=== PATIENT | female | born 1965 | race Caucasian/White ===

== ENCOUNTER 2016-09-18 09:01 | Observation (INO) | payer BC, MEDICARE ==
[2016-09-18 10:28] LABS: BUN/CREATININE RATIO 19 (0-10)
== END 2016-09-18 18:17 | disposition left against medical advice (07) ==
LOC: ER1 09:01 → ZEROF 13:45
PROVIDERS: Emergency Medicine; ADMIT Internal Medicine
DX: R56.9 Unspecified convulsions (principal); E78.5 Hyperlipidemia, unspecified; I25.10 Atherosclerotic heart disease of native coronary artery without angina pectoris; I11.0 Hypertensive heart disease with heart failure; I50.9 Heart failure, unspecified; E03.9 Hypothyroidism, unspecified; M54.9 Dorsalgia, unspecified; G89.29 Other chronic pain; Z95.1 Presence of aortocoronary bypass graft; Z90.49 Acquired absence of other specified parts of digestive tract; Z90.710 Acquired absence of both cervix and uterus; Z90.89 Acquired absence of other organs; Z88.0 Allergy status to penicillin; Z88.2 Allergy status to sulfonamides; Z88.1 Allergy status to other antibiotic agents; Z91.040 Latex allergy status; Z79.899 Other long term (current) drug therapy; Z79.891 Long term (current) use of opiate analgesic; Z87.891 Personal history of nicotine dependence
CPT/HCPCS: 51701; 70450; 71010; 72040; 72125; 80053; 81001; 82962; 83690; 84484; 85610; 85730; 93005; 96374; 99285; G0378; J1953; J2060

== ENCOUNTER → 2016-09-18 | Outpatient (CLI) | payer BC, MEDICARE ==
[~2016-09-18] MED LIST: ASPIRIN EC81 MG PO; BENTYL20 MG PO; CYMBALTA60 MG PO; ENTERAGAM POWDER5 GM PO; FENOFIBRATE160 MG PO; FLAGYL500 MG PO; IMDUR ER TAB 3030 MG PO; KEPPRA500 MG PO; LACTINEX PACKET1 PKT PO; LEVAQUIN750 MG PO; LEVOTHYROXINE112 MCG PO; LOMOTIL TABLET1 EA PO; LOVAZA1 GM PO; NASONEX SPRAY 117 GM; NORCO 7.5-3251 EACH PO; PROTONIX40 MG PO; RANEXA500 MG PO; REQUIP1 MG PO; SIMVASTATIN20 MG PO; SOMA350 MG PO; SYMBICORT 16010.2 GM INH; TOPROL XL25 MG PO; TYLENOL325 MG PO; VITAMIN D32000 UNI1 PO; XANAX0.5 MG PO; ZOFRAN4 MG PO
[2016-09-18 09:34] LABS: HEMOGLOBIN 12.9 gm/dl (12.3-15.3); RED BLOOD COUNT 3.73 M/UL (4.00-5.10); WHITE BLOOD COUNT 8.2 K/UL (4.5-11.0)
[2016-09-18 09:39] LABS: BUN/CREATININE RATIO 19 (0-10)
== END ==
LOC: LAB 08:30
PROVIDERS: Nurse Practitioner
DX: M79.1 Myalgia (principal)
CPT/HCPCS: 36415; 80053; 80061; 84436; 84443; 84480; 85025

== ENCOUNTER 2016-11-14 07:02 | Emergency (ER) | payer BC, MEDICARE ==
[2016-11-14 07:49] LABS: HEMOGLOBIN 12.9 gm/dl (12.3-15.3); RED BLOOD COUNT 3.76 M/UL (4.00-5.10); WHITE BLOOD COUNT 8.2 K/UL (4.5-11.0)
[2016-11-14 08:28] LABS: BUN/CREATININE RATIO 19 (0-10)
== END 2016-11-14 12:26 | disposition home or self-care (01) ==
LOC: ER1 07:02
PROVIDERS: Physician Assistant
DX: R07.89 Other chest pain (principal); I25.10 Atherosclerotic heart disease of native coronary artery without angina pectoris; E78.5 Hyperlipidemia, unspecified; Z87.891 Personal history of nicotine dependence; Z88.0 Allergy status to penicillin; Z95.5 Presence of coronary angioplasty implant and graft; Z95.1 Presence of aortocoronary bypass graft
CPT/HCPCS: 36415; 71010; 80053; 82550; 82553; 83874; 84484; 85025; 85379; 93005; 96374; 96375; 99285; J2270; J2405

== ENCOUNTER → 2021-03-03 | Outpatient (CLI) | payer MEDICARE, OTHER ==
[~2021-03-03] MED LIST changes: +ANUSOL-HC25 MG PR; +NEURONTIN 300300 MG PO; +SINGULAIR10 MG PO; +TOPAMAX25 MG PO; +WELCHOL625 MG PO
== END ==
LOC: SLEEP 14:44
DX: G47.33 Obstructive sleep apnea (adult) (pediatric) (principal)
CPT/HCPCS: 95810

== ENCOUNTER 2021-03-24 17:23 | Emergency (ER) | payer MEDICARE, OTHER ==
[2021-03-24 19:01] LABS: RED BLOOD COUNT 3.51 M/UL (4.00-5.10); WHITE BLOOD COUNT 5.9 K/UL (4.5-11.0)
[2021-03-24 19:28] LABS: BUN/CREATININE RATIO 11 (0-10)
[2021-03-24 19:49] LABS: ADENOVIRUS F 40/41 Not Detected (Negative); ASTROVIRUS Not Detected (Negative); CAMPYLOBACTER Not Detected (Negative); CLOSTRIDIUM DIFFICILE TOX A/B Not Detected (Negative); CRYPTOSPORIDIUM Not Detected (Negative); E.COLI 0157 Not Detected (Negative); ENTAMOEBA HISTOLYTICA Not Detected (Negative); ENTEROAGGREGATIVE E.COLI (EAEC Not Detected (Negative); ENTEROPATHOGENIC E.COLI (EPEC) Not Detected (Negative); ENTEROTOXIGENIC E.COLI (ETEC) Not Detected (Negative); GIARDIA LAMBLIA Not Detected (Negative); NOROVIRUS GI/GII Not Detected (Negative); PLESIOMONAS SHIGELLOIDES Not Detected (Negative); ROTOVIRUS A Not Detected (Negative); SALMONELLA Not Detected (Negative); SAPOVIRUS Not Detected (Negative); SHIG/ENTEROINVAS.ECOLI (EIEC) Not Detected (Negative); SHIGA-LIK TOX.PRO.E.COLI (STEC Not Detected (Negative); VIBRIO Not Detected (Negative); VIBRIO CHOLERAE Not Detected (Negative); YERSINIA ENTEROCOLITICA Not Detected (Negative)
== END 2021-03-24 20:45 | disposition home or self-care (01) ==
LOC: ER1 17:23
PROVIDERS: Physician Assistant
DX: R10.9 Unspecified abdominal pain (principal); R11.2 Nausea with vomiting, unspecified; R19.7 Diarrhea, unspecified; Z20.822 Contact with and (suspected) exposure to COVID-19; E78.5 Hyperlipidemia, unspecified; I10 Essential (primary) hypertension; Z90.89 Acquired absence of other organs; Z95.1 Presence of aortocoronary bypass graft; Z97.10 Presence of artificial limb (complete) (partial), unspecified; Z91.040 Latex allergy status; Z88.0 Allergy status to penicillin; Z88.1 Allergy status to other antibiotic agents; Z88.6 Allergy status to analgesic agent
CPT/HCPCS: 71045; 80053; 81001; 82550; 82553; 83605; 83690; 83874; 84484; 85025; 87086; 87507; 93005; 96374; 96375; 99284; J2270; J2405; Q9967; U0002

== ENCOUNTER → 2021-04-06 | Day surgery (SDC) | payer MEDICARE, OTHER ==
[~2021-04-06] MED LIST changes: +ATORVASTATIN CA40 MG PO; +CLOPIDOGREL75 MG PO; +ISOSORBIDE DINI30 MG PO; +ISOSORBIDE MON120 MG PO; +LEVOTHYROXINE50 MCG PO; +METOPROLOL SUC100 MG PO; +NORTRIPTYLINE H25 MG PO; +PREGABALIN200 MG PO; +PROTONIX 40 MG40 M1 PO; +TIZANIDINE HCL4 MG PO; +ZYLOPRIM 100 M100 MG PO
== END | disposition home or self-care (01) ==
LOC: OR 07:01
DX: K29.50 Unspecified chronic gastritis without bleeding (principal); B96.81 Helicobacter pylori [H. pylori] as the cause of diseases classified elsewhere; D12.8 Benign neoplasm of rectum; K64.1 Second degree hemorrhoids; K57.30 Diverticulosis of large intestine without perforation or abscess without bleeding; K52.9 Noninfective gastroenteritis and colitis, unspecified; R13.13 Dysphagia, pharyngeal phase; G89.29 Other chronic pain; M54.50 Low back pain, unspecified; Z95.1 Presence of aortocoronary bypass graft; Z95.818 Presence of other cardiac implants and grafts; Z88.0 Allergy status to penicillin; Z88.1 Allergy status to other antibiotic agents; Z88.2 Allergy status to sulfonamides; Z88.8 Allergy status to other drugs, medicaments and biological substances; Z79.01 Long term (current) use of anticoagulants; Z79.899 Other long term (current) drug therapy
CPT/HCPCS: J2250; J2704; J3010; J7040

== ENCOUNTER → 2021-05-23 | Outpatient (CLI) | payer MEDICARE, OTHER | LOC: MRI 13:16 | DX: M51.36 Other intervertebral disc degeneration, lumbar region (principal); F17.200 Nicotine dependence, unspecified, uncomplicated; M48.07 Spinal stenosis, lumbosacral region | CPT/HCPCS: 72148 ==

== ENCOUNTER 2021-06-20 09:09 | Inpatient (IN) | payer MEDICARE, OTHER ==
[~2021-06-20] VITALS: Ht 165.1 cm; Wt 70.8 kg
[~2021-06-20 09:09] MED LIST changes: -METOPROLOL SUC100 MG PO; -NORTRIPTYLINE H25 MG PO; +PAMELOR50 MG PO; +TOPROL XL50 MG PO
[2021-06-20 11:46] LABS: RED BLOOD COUNT 3.61 M/UL (4.00-5.10); WHITE BLOOD COUNT 5.4 K/UL (4.5-11.0)
[2021-06-20] MEDS ORDERED: ASPIRIN EC81 MG PO (14:03)
[2021-06-20] MEDS ORDERED: TOPIRAMATE50 MG PO (14:03)
[2021-06-20] MEDS ORDERED: HYDROCODON-ACE1 EAC4 PO (14:04)
[2021-06-20] MEDS ORDERED: RANOLAZINE ER1000 MG PO (14:06)
[2021-06-21 03:29] LABS: HEMOGLOBIN 12.7 gm/dl (12.3-15.3); RED BLOOD COUNT 3.79 M/UL (4.00-5.10); WHITE BLOOD COUNT 5.3 K/UL (4.5-11.0)
[2021-06-22 03:10] LABS: HEMOGLOBIN 10.4 gm/dl (12.3-15.3); RED BLOOD COUNT 3.15 M/UL (4.00-5.10); WHITE BLOOD COUNT 3.1 K/UL (4.5-11.0)
[2021-06-23 16:15] LABS: ORGANISM ID Not indicated. (.); SPECIMEN SOURCE Urine (.); STREPTOCOCCUS PNEUMONIAE AG Negative (Negative)
[2021-06-24 02:56] LABS: HEMOGLOBIN 12.3 gm/dl (12.3-15.3)
[2021-06-24 03:00] LABS: RED BLOOD COUNT 3.69 M/UL (4.00-5.10)
[2021-06-25 05:27] LABS: HEMOGLOBIN 11.1 gm/dl (12.3-15.3)
[2021-06-25 05:31] LABS: RED BLOOD COUNT 3.22 M/UL (4.00-5.10); WHITE BLOOD COUNT 4.4 K/UL (4.5-11.0)
[2021-06-26 06:00] LABS: HEMOGLOBIN 11.4 gm/dl (12.3-15.3); RED BLOOD COUNT 3.36 M/UL (4.00-5.10)
[2021-06-26 06:01] LABS: WHITE BLOOD COUNT 12.1 K/UL (4.5-11.0)
[2021-06-26 07:02] LABS: BUN/CREATININE RATIO 55 (0-10)
[2021-06-27 05:22] LABS: HEMOGLOBIN 10.8 gm/dl (12.3-15.3); RED BLOOD COUNT 3.11 M/UL (4.00-5.10); WHITE BLOOD COUNT 13.5 K/UL (4.5-11.0)
[2021-06-27 05:49] LABS: BUN/CREATININE RATIO 57 (0-10)
[2021-06-28 05:46] LABS: HEMOGLOBIN 10.5 gm/dl (12.3-15.3); RED BLOOD COUNT 3.13 M/UL (4.00-5.10)
[2021-06-28 05:55] LABS: WHITE BLOOD COUNT 8.2 K/UL (4.5-11.0)
[2021-06-28 06:00] LABS: BUN/CREATININE RATIO 59 (0-10)
[2021-06-29 05:32] LABS: BUN/CREATININE RATIO 50 (0-10)
[2021-06-30 06:13] LABS: RED BLOOD COUNT 4.04 M/UL (4.00-5.10)
[2021-06-30 06:14] LABS: HEMOGLOBIN 13.8 gm/dl (12.3-15.3)
[2021-06-30 06:49] LABS: BUN/CREATININE RATIO 50 (0-10)
[2021-07-01 06:53] LABS: BUN/CREATININE RATIO 49 (0-10)
--- NOTE | 2021-07-01 18:03 | NUR ---
PT EXTUBATED PER MD ORDER TO 50% AIRVO. VSS. PT TOLERATED WELL. WILL CONTINUE TO MONITOR.
[2021-07-02 06:52] LABS: BUN/CREATININE RATIO 43 (0-10)
[2021-07-02 08:57] LABS: HEMOGLOBIN 12.5 gm/dl (12.3-15.3); RED BLOOD COUNT 3.74 M/UL (4.00-5.10); WHITE BLOOD COUNT 11.1 K/UL (4.5-11.0)
[2021-07-03 05:29] LABS: BUN/CREATININE RATIO 28 (0-10)
[2021-07-05 07:58] LABS: BUN/CREATININE RATIO 36 (0-10)
--- NOTE | 2021-07-05 14:49 | NUR ---
AT 1410 PATIENTS BED ALARM WAS SOUNDING, UPON ENTERING ROOM STAFF NOTED THAT PT WAS LYING FACE DOWN IN FLOOR NEXT TO BED. PATIENT IS ALERT TO SELF AND HAS NO COMPLAINTS OF PAIN. UPON ASSESSMENT THERE WAS A SCANT AMOUNT OF BLOOD NTD TO THE UPPER LIP FROM NOSE. NO BRUISING OR INJUERIES NTD. MD NOTIFIED OF FALL WITH NEW ORDERS NTD AND STATES WILL COME SEE THE PATIENT. BED ALARM IS ON, BED IN LOWEST POSITIION, AND STRIP ALARM PLACED ON THE BED.
[2021-07-06 02:57] LABS: HEMOGLOBIN 11.9 gm/dl (12.3-15.3); RED BLOOD COUNT 3.6 M/UL (4.00-5.10)
[2021-07-06 03:16] LABS: BUN/CREATININE RATIO 42 (0-10)
[2021-07-07 03:12] LABS: HEMOGLOBIN 12.5 gm/dl (12.3-15.3); RED BLOOD COUNT 3.78 M/UL (4.00-5.10); WHITE BLOOD COUNT 7.5 K/UL (4.5-11.0)
[2021-07-07 03:26] LABS: BUN/CREATININE RATIO 50 (0-10)
[2021-07-09 09:04] LABS: HEMOGLOBIN 12.9 gm/dl (12.3-15.3); RED BLOOD COUNT 3.83 M/UL (4.00-5.10); WHITE BLOOD COUNT 6.1 K/UL (4.5-11.0)
[2021-07-09 09:31] LABS: BUN/CREATININE RATIO 41 (0-10)
[2021-07-10 11:28] LABS: HEMOGLOBIN 13.1 gm/dl (12.3-15.3); RED BLOOD COUNT 3.79 M/UL (4.00-5.10); WHITE BLOOD COUNT 5.9 K/UL (4.5-11.0)
[2021-07-10 12:05] LABS: BUN/CREATININE RATIO 39 (0-10)
[2021-07-11 08:32] LABS: HEMOGLOBIN 14.9 gm/dl (12.3-15.3); WHITE BLOOD COUNT 7.3 K/UL (4.5-11.0)
[2021-07-11 08:33] LABS: RED BLOOD COUNT 4.34 M/UL (4.00-5.10)
[2021-07-11 08:53] LABS: BUN/CREATININE RATIO 41 (0-10)
[2021-07-12 07:17] LABS: WHITE BLOOD COUNT 7.9 K/UL (4.5-11.0)
[2021-07-12 07:18] LABS: HEMOGLOBIN 11.6 gm/dl (12.3-15.3); RED BLOOD COUNT 3.37 M/UL (4.00-5.10)
[2021-07-13 02:34] LABS: HEMOGLOBIN 11.1 gm/dl (12.3-15.3); RED BLOOD COUNT 3.29 M/UL (4.00-5.10); WHITE BLOOD COUNT 8.2 K/UL (4.5-11.0)
[2021-07-13 03:13] LABS: BUN/CREATININE RATIO 22 (0-10)
[2021-07-13 22:04] LABS: ACINETOBACTER BAUMANNII Not Detected (Negative); CANDIDA ALBICANS Not Detected (Negative); CANDIDA KRUSEI Not Detected (Negative); CANDIDA TROPICALIS Not Detected (Negative); ENTEROCOCCUS Not Detected (Negative); ESCHERICHIA COLI Not Detected (Negative); HAEMOPHILUS INFLUENZAE Not Detected (Negative); KLEBSIELLA OXYTOCA Not Detected (Negative); KLEBSIELLA PNEUMONIAE Not Detected (Negative); KPC-CARBAPENEM-RESISTANCE GENE Not Detected (Negative); PROTEUS Not Detected (Negative); PSEUDOMONAS AERUGINOSA Not Detected (Negative); SERRATIA MARCESANS Not Detected (Negative); STAPHYLOCOCCUS AUREUS Not Detected (Negative); STREP AGALACTIAE (GROUP B) Not Detected (Negative); STREP PYOGENES (GROUP A) Not Detected (Negative); STREPTOCOCCUS Not Detected (Negative); vanA/B (VANCOMYCIN RESIST GENE Not Detected (Negative)
[2021-07-13 23:12] LABS: mecA (METHICILLIN RESIST GENE DETECTED (Negative)
[2021-07-13 23:19] LABS: STAPHYLOCOCCUS DETECTED (Negative)
[2021-07-14 05:08] LABS: HEMOGLOBIN 10.9 gm/dl (12.3-15.3); RED BLOOD COUNT 3.13 M/UL (4.00-5.10)
[2021-07-14 05:23] LABS: WHITE BLOOD COUNT 5.6 K/UL (4.5-11.0)
[2021-07-14 05:32] LABS: BUN/CREATININE RATIO 11 (0-10)
[2021-07-15 03:19] LABS: BUN/CREATININE RATIO 11 (0-10)
[2021-07-15 03:31] LABS: HEMOGLOBIN 10.7 gm/dl (12.3-15.3); RED BLOOD COUNT 3.13 M/UL (4.00-5.10); WHITE BLOOD COUNT 4.9 K/UL (4.5-11.0)
[2021-07-16 12:40] LABS: HEMOGLOBIN 10.5 gm/dl (12.3-15.3); RED BLOOD COUNT 3.03 M/UL (4.00-5.10); WHITE BLOOD COUNT 3.9 K/UL (4.5-11.0)
--- NOTE | 2021-07-16 17:25 | NUR ---
07-16-21 1725 PATIENT EDUCATED ABOUT THE RISKS OF EATING A DIET BESIDEDS A PURRED AND NECTAR THICK LIQUID DIET WITH OUT BEING FURTHER EVALUATED BY SPEECH THERAPY. PATIENT STATED THAT SHE UNDERSTOOD THE RISKS BUT THAT SHE WANTED TO TRY ANYWAY.
[2021-07-17 04:20] LABS: HEMOGLOBIN 9.9 gm/dl (12.3-15.3); RED BLOOD COUNT 2.87 M/UL (4.00-5.10); WHITE BLOOD COUNT 4.5 K/UL (4.5-11.0)
[2021-07-17 05:10] LABS: BUN/CREATININE RATIO 10 (0-10)
[2021-07-17] MEDS ORDERED: CARVEDILOL3.125 MG PO (17:30)
[2021-07-17] MEDS ORDERED: CILOSTAZOL100 MG PO (17:30)
[2021-07-17] MEDS ORDERED: DEX4 GLUCOSE4 GM PO (17:40)
[2021-07-17] MEDS ORDERED: SODIUM BICARBO650 M1 PO (17:42)
[2021-07-17] MEDS ORDERED: K-TAB ER20 MEQ PO (17:42)
[2021-07-17] MEDS ORDERED: IPRAT-ALBUT 0.5-3 ML INH (18:13)
== END 2021-07-17 19:09 | disposition home health service (06) | DRG 870 ==
LOC: ER1 09:09 → CDU 11:49 → PROG CARE 11:49 → CCU 11:49 → PROG CARE 06-21 00:30 → CCU 06-24 09:15 → PROG CARE 07-03 22:05
PROVIDERS: Emergency Medicine; Internal Medicine; Internal Medicine Critical Care Medicine; Internal Medicine Pulmonary Disease; ADMIT Internal Medicine
PROC: 3E043XZ Introduction of Vasopressor into Central Vein, Percutaneous Approach (ICD-10-PCS; principal; 2021-06-20)
PROC: 3E0333Z Introduction of Anti-inflammatory into Peripheral Vein, Percutaneous Approach (ICD-10-PCS; 2021-06-20)
PROC: XW033E5 Introduction of Remdesivir Anti-infective into Peripheral Vein, Percutaneous Approach, New Technology Group 5 (ICD-10-PCS; 2021-06-20)
PROC: 8E0ZXY6 Isolation (ICD-10-PCS; 2021-06-20)
PROC: 3E03329 Introduction of Other Anti-infective into Peripheral Vein, Percutaneous Approach (ICD-10-PCS; 2021-06-20)
PROC: 5A0935A Assistance with Respiratory Ventilation, Less than 24 Consecutive Hours, High Flow/Velocity Cannula (ICD-10-PCS; 2021-06-23)
PROC: 5A1955Z Respiratory Ventilation, Greater than 96 Consecutive Hours (ICD-10-PCS; 2021-06-24)
PROC: 0BH17EZ Insertion of Endotracheal Airway into Trachea, Via Natural or Artificial Opening (ICD-10-PCS; 2021-06-24)
PROC: 0DH67UZ Insertion of Feeding Device into Stomach, Via Natural or Artificial Opening (ICD-10-PCS; 2021-06-24)
PROC: 3E0G76Z Introduction of Nutritional Substance into Upper GI, Via Natural or Artificial Opening (ICD-10-PCS; 2021-06-24)
PROC: 5A09357 Assistance with Respiratory Ventilation, Less than 24 Consecutive Hours, Continuous Positive Airway Pressure (ICD-10-PCS; 2021-06-24)
PROC: 02HV33Z Insertion of Infusion Device into Superior Vena Cava, Percutaneous Approach (ICD-10-PCS; 2021-06-24)
PROC: B24BZZZ Ultrasonography of Heart with Aorta (ICD-10-PCS; 2021-06-24)
PROC: XW033H5 Introduction of Tocilizumab into Peripheral Vein, Percutaneous Approach, New Technology Group 5 (ICD-10-PCS; 2021-06-25)
PROC: 5A0945A Assistance with Respiratory Ventilation, 24-96 Consecutive Hours, High Flow/Velocity Cannula (ICD-10-PCS; 2021-07-01)
DX: A41.51 Sepsis due to Escherichia coli [E. coli] (principal); U07.1 COVID-19; J12.82 Pneumonia due to coronavirus disease 2019; R65.21 Severe sepsis with septic shock; I50.23 Acute on chronic systolic (congestive) heart failure; J80 Acute respiratory distress syndrome; J15.9 Unspecified bacterial pneumonia; N17.0 Acute kidney failure with tubular necrosis; G92.8 Other toxic encephalopathy; R57.1 Hypovolemic shock; E87.2 Acidosis; N39.0 Urinary tract infection, site not specified; E87.0 Hyperosmolality and hypernatremia; I47.1 Supraventricular tachycardia; Z99.11 Dependence on respirator [ventilator] status; E87.1 Hypo-osmolality and hyponatremia; I49.3 Ventricular premature depolarization; I11.0 Hypertensive heart disease with heart failure; I25.5 Ischemic cardiomyopathy; R29.6 Repeated falls; I25.10 Atherosclerotic heart disease of native coronary artery without angina pectoris; E78.5 Hyperlipidemia, unspecified; R73.9 Hyperglycemia, unspecified; L89.896 Pressure-induced deep tissue damage of other site; L89.626 Pressure-induced deep tissue damage of left heel; L89.616 Pressure-induced deep tissue damage of right heel; T38.0X5A Adverse effect of glucocorticoids and synthetic analogues, initial encounter; E87.6 Hypokalemia; G89.29 Other chronic pain; E03.9 Hypothyroidism, unspecified; K21.9 Gastro-esophageal reflux disease without esophagitis; F32.A Depression, unspecified; K52.9 Noninfective gastroenteritis and colitis, unspecified; E83.39 Other disorders of phosphorus metabolism; R53.81 Other malaise; E86.0 Dehydration; M54.9 Dorsalgia, unspecified; R45.1 Restlessness and agitation; Z95.5 Presence of coronary angioplasty implant and graft; Z79.899 Other long term (current) drug therapy; Z88.0 Allergy status to penicillin; Z88.8 Allergy status to other drugs, medicaments and biological substances; Z88.2 Allergy status to sulfonamides; Z83.6 Family history of other diseases of the respiratory system; Z23 Encounter for immunization; Z86.73 Personal history of transient ischemic attack (TIA), and cerebral infarction without residual deficits; Z79.82 Long term (current) use of aspirin; Z95.1 Presence of aortocoronary bypass graft
CPT/HCPCS: 0240U; 31500; 36415; 36600; 70450; 70486; 70551; 71045; 72125; 74018; 74230; 80048; 80053; 80202; 81001; 82140; 82436; 82570; 82607; 82728; 82803; 82962; 83036; 83540; 83550; 83605; 83615; 83735; 83880; 84100; 84132; 84133; 84156; 84300; 84439; 84443; 85025; 85027; 85379; 85384; 85610; 85652; 86140; 87040; 87070; 87077; 87086; 87150; 87186; 87205; 87278; 87899; 89050; 92526; 92610; 92611-GN; 93005; 93925; 94002; 94003; 94640; 94660; 94664; 94760; 96372; 96374; 96375; 96376; 97110; 97110-GP-CQ; 97116-GP-CQ; 97161; 97164; 97166; 97168; 97530; 97530-GP-CQ; 99285; A6212; C1751; G0378; J0248; J0330; J1100; J1205; J1335; J1644; J1650; J1940; J1956; J2060; J2185; J2250; J2704; J3010; J3370; J3410; J3475; J3486; J7030; J7040; J7070; P9047

== ENCOUNTER 2021-07-30 20:18 | Emergency (ER) | payer MEDICARE, OTHER ==
[~2021-07-30 20:18] MED LIST changes: +CARVEDILOL3.125 MG PO; +CILOSTAZOL100 MG PO; +DEX4 GLUCOSE4 GM PO; +HYDROCODON-ACE1 EAC4 PO; +IPRAT-ALBUT 0.5-3 ML INH; +K-TAB ER20 MEQ PO; +RANOLAZINE ER1000 MG PO; +SODIUM BICARBO650 M1 PO; +TOPIRAMATE50 MG PO
[2021-07-30 20:36] LABS: RED BLOOD COUNT 2.62 M/UL (4.00-5.10)
== END 2021-07-30 22:21 | disposition expired ==
LOC: ER1 20:18
PROVIDERS: Student in an Organized Health Care Education/Training Program
DX: I46.9 Cardiac arrest, cause unspecified (principal)
CPT/HCPCS: 36600; 80048; 82550; 82553; 82803; 83605; 84484; 85025; 85379; 85730; 92950; 94002; 99285; J0171; J0461; J7070